=== PATIENT | male | born 1940 | race African-American/Black ===

== ENCOUNTER 2020-06-05 19:00 | Emergency (ER) | payer MEDICARE, SELFPAY ==
[2020-06-05 19:17] VITALS: BP 228/105; PULSE 74; RESP 18; TEMP 37.1; O2SAT 98; BMI 23.3
--- NOTE | 2020-06-05 20:23 | ED.MALEGU ---
HPI - Male Genitourinary General Chief complaint: Urogenital-Male Stated complaint: unable to void Time Seen by Provider: 06/05/20 20:15 Source: patient Mode of arrival: ambulatory Limitations: no limitations History of Present Illness HPI Narrative: Patient comes emergency room complaining of difficulty urinating. Patient states the last time that he urinated was approximately 7 hours ago, states his suprapubic area keeps getting more distended and very painful. Patient states this is the 1st time this happens. Patient denies testicular pain, no abdominal pain other than suprapubic area from the bladder distention. No nausea vomiting. Related Data Previous Rx's Medication Instructions Recorded tamsulosin 0.4 mg PO BEDTIME #10 cap 06/05/20 Allergies Allergy/AdvReac Type Severity Reaction Status Date / Time No Known Allergies Allergy Verified 06/05/20 20:23 Review of Systems Review of Systems: Constitutional : No Weight loss, No Fever, No Chills, No Night Sweats, No Fatigue, No Malaise ENT/Mouth : No Hearing loss, No Ear Pain, No Nasal Congestion, No Sinus Pain, No Hoarseness, No sore throat, No Rhinorrhea, No Swallowing Difficulty Eyes: No Eye Pain, No Swelling, No Redness, No Foreign Body, No Discharge, No Vision Changes Cardiovascular : No Chest Pain, No SOB, No Dyspnea on Exertion, No Orthopnea, No Edema, No Palpitations Respiratory : No Cough, No Sputum, No Wheezing, No Smoke Exposure, No Dyspnea Gastrointestinal : No Nausea, No Vomiting, No Diarrhea, No Constipation, complaining of suprapubic pain, No Hematochezia, No Melena Genitourinary complaining of difficulty urinating Musculoskeletal : No joint pain, No Myalgias, No Joint Swelling Skin : No Skin Lesions, No rash Neuro : No Weakness, No Numbness, No Paresthesias, No Loss of Consciousness, No Dizziness, No Headache Psych : No Anxiety/Panic, No Depression, No SI/HI/AH/VH, No Social Issues, Heme/Lymph: No Bruising, No Bleeding,No Lymphadenopathy Endocrine : No Polyuria, No Polydipsia, No Temperature Intolerance PMFSH Social History Social History Advance Directives: No Advance Directives Information Provided: No Physical Exam Vital Signs: Vital Signs: Last Vital Signs Temp 98.7 F 06/05/20 19:17 Pulse 74 06/05/20 19:17 Resp 18 06/05/20 19:17 BP 228/105 H 06/05/20 19:17 Pulse Ox 98 06/05/20 19:17 Body Mass Index 23.3 Appearance: Alert. Oriented X3. No acute distress. Eyes: Pupils equal, round and reactive to light. ENT: Pharynx normal. Neck: Normal inspection. Neck supple. No lymph nodes noted. No crepitus CVS: Normal heart rate and rhythm. Pulses normal. Normal S1 and S2 Respiratory: No respiratory distress. Breath sounds normal. No Wheezing. No rales Abdomen: Soft , suprapubic tenderness and fullness, bladder scan shows 900 mL of urine , slightly distended. Skin: Skin warm and dry. Normal skin color. Normal skin turgor. Extremities: No lower extremity edema. No lower extremity edema. No Lacerations. No Rash Neuro: Oriented X 3. No motor deficit. No sensory deficit. Moving all extermities. No slurred speech. Course Course Course Narrative: Coker catheter did not pass the prostate, a coude was inserted. Patient will follow-up with urology. Patient has now significant abdominal discomfort relief MDM - Male Genitourinary Lab Data Labs: Lab Results 06/05/20 Range/Units 21:38 Urine Color STRAW Urine Appearance CLEAR Urine pH 5.5 (5.0-8.0) Ur Specific [place] <= 1.005 (1.005-1.025) Urine Protein NEG (NEG-TRACE) MG/DL Urine Glucose (UA) NEG (NEG) MG/DL Urine Ketones NEG (NEG) MG/DL Urine Blood 3+ H (NEG) Urine Nitrite NEG (NEG) Ur Leukocyte Esterase NEG (NEG) Urine RBC 0-2 (0) /HPF Urine WBC 0-2 (0-4) /HPF Ur Squamous Epith Cells NONE /LPF Urine Bacteria NONE /LPF Urine Mucus TRACE /LPF Discharge Plan Discharge Clinical Impression: Acute urinary retention Patient Disposition: Home, Self-Care Instructions: Urinary Retention in Men (ED) Additional Instructions: Please follow-up with urology. Please follow-up with your primary care physician tomorrow. If you have any worsening or new symptoms, please return to the emergency room or call 911 Prescriptions: New tamsulosin 0.4 mg capsule 0.4 mg PO BEDTIME Qty: 10 RF: 0 Referrals: Denis Melgoza MD [Physician] - 2 days
[2020-06-05] MEDS: Lidocaine HCl 2 % Urojet 10 ML JEL.PF.APP TOPICAL (21:11)
[2020-06-05 22:00] VITALS: BP 160/78; PULSE 77; RESP 18; O2SAT 100
[2020-06-05 22:04] LABS: Glucose Urine UA NEG (NEG); Leukocyte Esterase Urine NEG (NEG); Nitrite Urine NEG (NEG); PH 5.5 (5.0-8.0); Specific Gravity - Urine <= 1.005 (1.005-1.025); Urine Blood 3+ (NEG); Urine Ketones NEG (NEG); Urine Protein NEG (NEG-TRACE)
[2020-06-05 22:12] LABS: Appearance Urine CLEAR; Color Urine STRAW
[2020-06-05 22:22] LABS: Mucus Urine TRACE /LPF; RBC Urine 0-2 /HPF (0); WBC Urine 0-2 /HPF (0-4)
--- NOTE | 2020-06-06 14:55 | MHC.CM.ED ---
Received telephone call from patient's , Bear. Patient was discharged from the ER around midnight last night. He came home with a gates and leg bag. Bear figured out how to empty but would like some help with care. Bear agreeable to referral to [facility]. Spoke with Crystal at [facility]. They will be able to see patient tomorrow. Bear aware. Continue to monitor for d/c needs.
== END 2020-06-06 | disposition home or self-care (01) ==
PROVIDERS: Emergency Provider Emergency Medicine; PCP Internal Medicine
DX: R33.9 Retention of urine, unspecified (principal)
CPT/HCPCS: 51798; 81001; 81003; 99283; 99284

== ENCOUNTER → 2020-06-09 11:06 | Outpatient (BNVA) | payer MEDICARE, SELFPAY | PROVIDERS: Visit Provider Urology | DX: N40.1 Benign prostatic hyperplasia with lower urinary tract symptoms (principal); R33.9 Retention of urine, unspecified; N13.8 Other obstructive and reflux uropathy | CPT/HCPCS: 51700; 99202 ==

== ENCOUNTER 2020-06-26 | Outpatient (REF) | payer MEDICARE, SELFPAY | END 2020-06-26 00:01 | disposition home or self-care (01) | LOC: HO.LNP | PROVIDERS: Visit Provider Urology | DX: Z13.89 Encounter for screening for other disorder (principal) | CPT/HCPCS: 87086 ==

== ENCOUNTER → 2020-06-26 13:00 | Outpatient (BNVA) | payer MEDICARE, SELFPAY | PROVIDERS: Visit Provider Urology | DX: N40.1 Benign prostatic hyperplasia with lower urinary tract symptoms (principal); N39.0 Urinary tract infection, site not specified; A49.9 Bacterial infection, unspecified; R33.9 Retention of urine, unspecified; N13.8 Other obstructive and reflux uropathy | CPT/HCPCS: 51798; 81002; 99212 ==

== ENCOUNTER 2020-06-29 08:30 | Outpatient (REF) | payer MEDICARE, SELFPAY | END 2020-06-29 08:31 | disposition home or self-care (01) | LOC: HO.LNP 08:30 | PROVIDERS: Visit Provider Urology | DX: Z13.89 Encounter for screening for other disorder (principal) | CPT/HCPCS: 87086 ==

== ENCOUNTER 2020-07-03 08:21 | Outpatient (REF) | payer MEDICARE, SELFPAY | END 2020-07-03 08:22 | disposition home or self-care (01) | LOC: HO.LAB 08:21 | PROVIDERS: Visit Provider Urology | DX: N39.0 Urinary tract infection, site not specified (principal); A49.9 Bacterial infection, unspecified | CPT/HCPCS: 87086 ==

== ENCOUNTER 2020-09-23 08:11 | Outpatient (REF) | payer MEDICARE, SELFPAY ==
--- NOTE | ~2020-09-23 | MR_ITS ---
EXAMINATION: MRI ABDOMEN WITH AND WITHOUT CONTRAST CLINICAL INFORMATION: COMPLEX RT RENAL CYST COMPARISON: No pertinent priors currently available. TECHNIQUE: Multiple routine MRI sequences through the abdomen were obtained on a high-field 1.5Tesla MRI. Pre-and postcontrast images with 6 mL of Gadavist intravenous contrast were obtained. This included a dynamic contrast-enhanced technique. FINDINGS: Visualized lung bases are unremarkable. Liver demonstrates a few tiny T2 bright nonenhancing small cysts but no suspicious hepatic lesion. No biliary ductal dilatation. Pancreas is atrophic but no pancreatic ductal dilatation or peripancreatic lesion. Spleen. Adrenals are unremarkable. There is a T2 bright nonenhancing 6.4 cm partially exophytic cyst arising from the lateral midpole of the right kidney. There is a T2 bright nonenhancing 2.7 cm cyst in the upper pole of the right kidney which demonstrates thin nonenhancing septations. There are a few additional tiny cortical cysts in the right kidney noted as well. I do not appreciate any suspicious mass lesion in the kidneys. No obstructive changes. Main finding of note on the study is multiple bony lesions best appreciated on the postcontrast images. This includes lesions in the visualized bilateral ribs as well as in the spine at L1 and likely T8. Distally there are smaller lesions in the visualized pelvic bones and sacrum partially seen on the edge of the [id number]. Bony metastases would be strongly favored with this appearance. I do not have any prior films available for comparison MR/MR abdomen wo/w con IMPRESSION: Multiple bony lesions are seen most conspicuous on the postcontrast imaging. The examination was not tailored to evaluate the bony lesions but the largest enhancing mass measures 3 cm in size in the posterior right L1 vertebral body extending into the posterior elements. Additional rib lesions, spinal lesions, and pelvic lesions are noted. Additionally there is a suggestion of innumerable tiny subcentimeter areas of diffuse enhancing lesions seen throughout the spine on the postcontrast above images. Etiology of these bony lesions is uncertain. I do not have any history or prior films available for review. Clinical correlation will be needed. Tissue diagnosis may be needed as well. I do not see a definitive intra-abdominal source of these multiple suspicious bony lesions. Thin septations seen within upper pole cyst but no solid component or significant enhancement. 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 This critical result was discussed with Ankush Hopkins MD at 09/26/2020 5:38 PM and it was ascertained that the content and urgency of the report was understood at the time of direct communication.
== END 2020-09-23 08:12 | disposition home or self-care (01) ==
LOC: HO.MRI 08:11
PROVIDERS: PCP Nurse Practitioner Family; Visit Provider Nurse Practitioner Family
DX: N28.1 Cyst of kidney, acquired (principal)
CPT/HCPCS: 74183; A9585